=== PATIENT | female | born 1965 | race Caucasian/White ===

== ENCOUNTER → 2019-11-08 | Outpatient (CLI) | payer OTHER ==
--- NOTE | 2019-11-08 13:39 | CT ---
EXAMINATION TYPE: CT chest wo con DATE OF EXAM: 11/08/2019 COMPARISON: None HISTORY: Other emphysema with alpha [address] DLP: 385.[address] of the chest was performed with lung and mediastinal window settings submitted. The la ck of contrast limits evaluation of the vascular, mediastinal and parenchymal structures including th e upper abdomen. LUNGS: The lungs are clear and free of infiltrate. No atelectasis. No pulmonary nodule or mass is de tected. No pleural effusion. No CT evidence of interstitial lung disease. MEDIASTINUM/ANKIT: Thoracic aorta is of normal caliber with limited evaluation given lack of contrast . The heart is not enlarged. No evidence for mediastinal mass. No lymph nodes greater than 1cm. UPPER ABDOMEN: No significant abnormality is seen. OTHER: No significant other abnormality. IMPRESSION: 1. No emphysematous bulla noted. Mild hyperinflation compatible with COPD.
== END | disposition home or self-care (01) ==
LOC: RADCTMAIN 13:03
PROVIDERS: ATTEND Internal Medicine Pulmonary Disease
DX: R91.8 Other nonspecific abnormal finding of lung field (principal); K51.90 Ulcerative colitis, unspecified, without complications; M79.7 Fibromyalgia; I48.91 Unspecified atrial fibrillation; G47.30 Sleep apnea, unspecified
CPT/HCPCS: 71250

== ENCOUNTER → 2020-01-15 | Outpatient (CLI) | payer OTHER ==
--- NOTE | 2020-01-15 07:47 | US ---
EXAMINATION TYPE: US liver DATE OF EXAM: 01/15/2020 COMPARISON: NONE CLINICAL HISTORY: R94.5 Abn liver function. abnormal liver enzymes EXAM MEASUREMENTS: Liver Length: 16.1 cm Gallbladder Wall: 0.2 cm CBD: 0.3 cm Right Kidney: 10.9 x 3.7 x 3.7 cm Pancreas: Obscured by bowel gas Liver: appears wnl Gallbladder: no evidence of stones Evidence for sonographic Santamaria's sign: no CBD: appears wnl Right Kidney: no evidence of hydronephrosis Visualized pancreas is within normal limits. Visualized liver shows no worrisome mass or ductal dilat ation. No surrounding ascites. No hydronephrosis right kidney. Gallbladder within normal limits. IMPRESSION: No worrisome focal intrahepatic mass or intrahepatic ductal dilatation.
[2020-01-15 08:44] LABS: ALT 14 U/L (4-34); AST 22 U/L (14-36); African American GFR (CKD) >90 (>60 ml/min/1.73 sqM); Alkaline Phosphatase 54 U/L (38-126); Anion Gap 4 mmol/L; Blood Urea Nitrogen 12 mg/dL (7-17); Calcium 9.2 mg/dL (8.4-10.2); Carbon Dioxide 30 mmol/L (22-30); Chloride 106 mmol/L (98-107); Glucose 106 mg/dL (74-99); Non-African American GFR(CKD) 83 (>60 ml/min/1.73 sqM); Potassium 4.8 mmol/L (3.5-5.1); Sodium 140 mmol/L (137-145); Total Bilirubin 0.5 mg/dL (0.2-1.3)
[2020-01-15 14:42] LABS: % Iron Saturation 31.01 (12.00-45.00); Iron 89 ug/dL (50-170); Total Iron Binding Capacity 287 ug/dL (228-460)
[2020-01-15 14:50] LABS: Ferritin 21.9 ng/mL (10.0-291.0)
[2020-01-15 15:22] LABS: Ceruloplasmin 24.4 mg/dL (20.0-60.0)
[2020-01-15 15:47] LABS: Hepatitis B Surface Antigen Non-Reactive (Non-Reactive); Hepatitis C IgG Antibody Non-Reactive (Non-Reactive)
== END | disposition home or self-care (01) ==
LOC: RADUSWWP 07:01
PROVIDERS: ATTEND Internal Medicine Gastroenterology
DX: R94.5 Abnormal results of liver function studies (principal)
CPT/HCPCS: 76705; 80053; 82390; 82728; 83516; 83540; 83550; 86038; 86803; 87340

== ENCOUNTER 2020-02-19 06:11 | Day surgery (SDC) | payer OTHER ==
[2020-02-16 09:22] VITALS: BMI 32.5
[~2020-02-19 06:11] MED LIST: ACETAMINOPHEN TAB 500 MG TAB PO PRN; HEPARIN SODIUM,PORCINE 5,000 UNIT/ML 1 ML VIAL SQ PRN; HYDROmorphone 0.5 MG/0.5 ML SYRINGE IVP PRN; LACTATED RINGERS 1,000 ML IV SCH; LIDOCAINE 1% (10MG/ML) FOR IV START INTRADERMA PRN; MIDAZOLAM 2 MG/2 ML VIAL IV PRN; ONDANSETRON 4 MG/2 ML VIAL IVP ONE; Pre Op ABX Message 1 EACH MISC MISCELLANE ONE
[2020-02-19] MEDS ORDERED: LACTATED RINGERS 1,000 ML IV ONE ×2 (06:44→08:42)
[2020-02-19] MEDS ORDERED: LIDOCAINE 1% INJ 10MG/ML (20 ML MDV) ONE (07:49)
[2020-02-19] MEDS ORDERED: PROPOFOL 10 MG/ML 20 ML VIAL IV ONE (07:49)
[2020-02-19] MEDS ORDERED: HYDROmorphone (PF) 1 MG/ML ONE (07:49)
[2020-02-19] MEDS ORDERED: MIDAZOLAM 2 MG/2 ML VIAL ONE (07:49)
[2020-02-19] MEDS ORDERED: ePHEDrine SULFATE/0.9% NACL/PF 50 MG/5 ML SYRINGE IV ONE (07:49)
[2020-02-19] MEDS ORDERED: fentaNYL (PF) 50 MCG/ML 2 ML AMP ONE (07:49)
[2020-02-19] MEDS ORDERED: SODIUM CHLORIDE 0.9% 50 ML with ceFAZolin 2,000 MG IV ONE ×2 (07:55)
--- NOTE | 2020-02-19 07:57 | P.GSHP ---
History of Present Illness H&P Date: 02/19/20 Chief Complaint: Alpha I antitrypsin 54-year-old female with recent diagnosis of severe Alpha I antitrypsin deficiency. Patient with underlying pulmonary issues as a result of that. Will be receiving weekly infusions for that reason. Duration is likely indefinite at this time. Patient apparently has poor IV access and they're having difficulty with the infusions recently. Here today for Port-A-Cath placement. She has not had one previously. Past Medical History Past Medical History: Hypertension, Renal Disease Additional Past Medical History / Comment(s): had COVID beginning of Jan 2020 w/ 6 day hospitalization-last neg test on 02-06-20."extra heart beats", emphysema associated with alpha1 Antitrypsin Def,pheno type EZ,SOB,uses O2 @ 2 L NC @HS,elevated AST & ALT,restless leg syndrome History of Any Multi-Drug Resistant Organisms: MRSA Date of last positivie culture/infection: 2009 MDRO Source:: buttocks Past Surgical History: Appendectomy, Heart Catheterization, Tonsillectomy Additional Past Surgical History / Comment(s): heart cath clear 2018,laparotomy,tumor removed left rib cage, laparoscopy x3,laparotomy for micscarriage Additional Past Anesthesia/Blood Transfusion Reaction / Comment(s): no hx blood transfusion,had leg tremors with heart cath procedure Smoking Status: Never smoker - Past Family History Mother Additional Family Medical History / Comment(s): maternal grandfather colon CA. maternal grandmother breast CA Father Family Medical History: Cancer Additional Family Medical History / Comment(s): leukemia,heart problems,. paternal grandmother lung/liver CA Medications and Allergies Home Medications Medication Instructions Recorded Confirmed Type Acetaminophen Tab [Tylenol] 650 mg PO Q6H PRN 02/16/20 02/16/20 History Albuterol Sulfate [Proair Hfa] 2 puff INHALATION Q6HR PRN 02/16/20 02/16/20 History Fluticasone Propionate 220 Mcg 2 puff INHALATION RT-BID 02/16/20 02/16/20 History [Flovent 220 Mcg Inhaler (Mhu)] [place] Infusion 1 dose IV Q7D 02/16/20 02/16/20 History Ipratropium [place] [Atrovent Hfa] 2 puff INHALATION QID 02/16/20 02/16/20 History Metoprolol Tartrate [Lopressor] 12.5 mg PO BID 02/16/20 02/16/20 History Naproxen Sodium [Aleve] 220 mg PO DAILY PRN 02/16/20 02/16/20 History Thyroid,Pork [[place] Thyroid] 120 mg PO HS 02/16/20 02/16/20 History amLODIPine [Norvasc] 10 mg PO QAM 02/16/20 02/16/20 History diphenhydrAMINE [Benadryl] 50 mg PO DAILY PRN 02/16/20 02/16/20 History Allergies Allergy/AdvReac Type Severity Reaction Status Date / Time beclomethasone [From Qvar] Allergy burning in Verified 02/16/20 08:56 throat and chest,voice hoarseness hydrochlorothiazide Allergy severe low Verified 02/16/20 08:56 potassium causing rapid heart rate latex Allergy hives Verified 02/16/20 08:56 nitroglycerin AdvReac severe Verified 02/16/20 08:56 headache,nausea/vomiting Surgical - Exam Vital Signs Temp Pulse Resp BP Pulse Ox 97.8 F 69 18 140/63 96 02/19/20 06:43 02/19/20 06:43 02/19/20 06:43 02/19/20 06:43 02/19/20 06:43 Physical exam: General: Well-developed, well-nourished HEENT: Normocephalic, sclerae nonicteric Abdomen: Nontender, nondistended Extremities: No edema Neuro: Alert and oriented Assessment and Plan (1) [id number] deficiency Narrative/Plan: Will proceed with Port-A-Cath placement at this time. Risks of bleeding, infection, DVT, pneumothorax, catheter malfunction, anesthesia related complications were discussed. The patient understands and wishes to proceed. Current Visit: Yes Status: Acute Code(s): E88.01 - [id number] DEFICIENCY SNOMED Code(s): 30395322
[2020-02-19] MEDS ORDERED: LIDOCAINE 1% INJ 10MG/ML (20 ML MDV) SQ ONE ×2 (08:13→08:31)
[2020-02-19] MEDS ORDERED: HEPARIN SODIUM,PORCINE 100 UNIT/ML 5 ML VIAL IV ONE (08:14)
[2020-02-19] MEDS ORDERED: HYDROcodone/APAP 5-325MG 1 EACH TAB PO PRN (08:45)
[2020-02-19] MEDS ORDERED: NALOXONE 0.4 MG/ML 1 ML VIAL IV PRN (08:45)
--- NOTE | 2020-02-19 08:47 | P.OP ---
Date of Procedure: 02/19/20 Procedure(s) Performed: PREOPERATIVE DIAGNOSIS: Alpha-1 antitrypsin deficiency POSTOPERATIVE DIAGNOSIS: Same PROCEDURE: Port-A-Cath placement with fluoroscopic and ultrasound guidance SURGEON: John EBL: Minimal ANESTHESIA: Sedation COMPLICATIONS: None OPERATIVE PROCEDURE: Patient was brought and placed on the operative table in the supine position. The patient was sedated per anesthesia that time. The chest and neck were prepped and draped in usual sterile fashion. The ultrasound probe was used to identify the location of the right internal jugular vein. The skin was localized with lidocaine. The Seldinger needle was advanced into the IJ under ultrasound guidance. The wire was advanced through the needle under fluoroscopic guidance into the superior vena cava. A port pocket was created in the right infraclavicular location. The 8-Mongolian catheter was tunneled from the wire entrance site to the port pocket. The port was then connected to the catheter. The dilator introducer was threaded over the guidewire. The guidewire and dilator were then removed. The catheter was advanced through the introducer and introducer was then removed. The tip was seen to be in the right atrial junction via fluoroscopy. A picture of the radiograph showing the tip at the radial digital junction was taken. Port was flushed with both saline and a Hep-Lock solution. There was good flow both in and out of the port. The port was sutured in underlying tissues using 3-0 silk sutures. The subcutaneous tissues were reapproximated using 3-0 Vicryl sutures and the skin at both locations using 4-0 Monocryl sutures. Skin glue and sterile dressings then applied. DISPOSITION: Stable to recovery room
[2020-02-19 08:52] VITALS: TEMP 97
[2020-02-19] MEDS ORDERED: KETOROLAC 15 MG/ML 1 ML VIAL IVP ONE (08:56)
--- NOTE | 2020-02-19 08:58 | FL ---
EXAMINATION TYPE: FL guided central line placemt DATE OF EXAM: 02/19/2020 CLINICAL HISTORY: Port-A-Cath insertion. TECHNIQUE: Fluoroscopy. COMPARISON: None. FINDINGS: Fluoroscopic guidance was provided during Port-A-Cath insertion procedure performed by Dr. Lopez. A total of 10 seconds of fluoroscopic time was utilized during the procedure and single spot fluoroscopic intraoperative image is acquired. Single image acquired shows right internal jugular ce ntral venous catheter terminating in SVC. IMPRESSION: As Above.
[2020-02-19 09:19] VITALS: RESP 16
--- NOTE | 2020-02-19 09:33 | XR ---
EXAMINATION TYPE: XR chest 1V confirm line [facility] DATE OF EXAM: 02/19/2020 COMPARISON: NONE HISTORY: 54-year-old female confirm line placement for Port-A-Cath TECHNIQUE: Single frontal view of the chest is obtained. FINDINGS: Right anterior chest wall injection port with catheter tip at the cavoatrial junction, satisfactory. Hardware limits of normal in size. Mild interstitial prominence may be chronic and can be reassessed at follow-up to exclude any early interstitial infiltrates. No pneumothorax or pleural effusion. IMPRESSION: Satisfactory right anterior chest wall injection port. Catheter tip at the cavoatrial junction.
[2020-02-19 09:51] VITALS: BP 115/76; PULSE 64
== END 2020-02-19 10:25 | disposition home or self-care (01) ==
LOC: OR 06:11
PROVIDERS: ATTEND Surgery
DX: E88.01 Alpha-1-antitrypsin deficiency (principal); I10 Essential (primary) hypertension; J45.909 Unspecified asthma, uncomplicated; J43.9 Emphysema, unspecified; G25.81 Restless legs syndrome; E07.9 Disorder of thyroid, unspecified; Z91.040 Latex allergy status; Z88.8 Allergy status to other drugs, medicaments and biological substances; Z79.51 Long term (current) use of inhaled steroids; Z79.890 Hormone replacement therapy; Z79.899 Other long term (current) drug therapy; Z86.19 Personal history of other infectious and parasitic diseases; Z99.81 Dependence on supplemental oxygen; Z86.14 Personal history of Methicillin resistant Staphylococcus aureus infection; Z90.49 Acquired absence of other specified parts of digestive tract; Z98.890 Other specified postprocedural states; Z80.0 Family history of malignant neoplasm of digestive organs; Z80.3 Family history of malignant neoplasm of breast; Z80.6 Family history of leukemia; Z80.1 Family history of malignant neoplasm of trachea, bronchus and lung
CPT/HCPCS: 81025; 77001; 36561; C1788; J2250; J1644; J1642; J2405; J0690; J2001; J3010; J1170; J1885; J2704

== ENCOUNTER 2020-02-28 10:41 | Day surgery (SDC) | payer OTHER ==
[2020-02-28 11:17] VITALS: TEMP 97.8
[2020-02-28] MEDS ORDERED: LACTATED RINGERS 1,000 ML IV ONE (11:24)
[2020-02-28] MEDS ORDERED: LIDOCAINE 1% (10MG/ML) FOR IV START INTRADERMA ONE (11:25)
[2020-02-28] MEDS ORDERED: PROPOFOL 10 MG/ML 20 ML VIAL IV ONE (12:00)
--- NOTE | 2020-02-28 12:13 | P.PCN ---
Date of Procedure: 02/28/20 Procedure(s) Performed: BRIEF HISTORY: Patient is a 54-year-old pleasant white female scheduled for an elective colonoscopy as a part of surveillance of long-standing ulcerative colitis diagnosed in 2013. Presently clinical remission. She is not on any maintenance medications. PROCEDURE PERFORMED: Colonoscopy with random biopsies PREOPERATIVE DIAGNOSIS: Long-standing history of ulcerative colitis. IV sedation per Anesthesia. PROCEDURE: After informed consent was obtained, the patient, was brought into the endoscopy unit. IV sedation was administered by Anesthesia under continuous monitoring. Digital rectal examination was normal. Initially the Olympus CF-160 flexible video colonoscope was then inserted in the rectum, gradually advanced into the cecum without any difficulty. Careful examination was performed as the scope was gradually being withdrawn. Ileocecal valve and the appendiceal orifice were visualized and appeared normal. Prep was excellent. Mucosa of the cecum, ascending colon, transverse colon, descending colon, sigmoid colon, and rectum appeared normal. Status post random biopsies at every 10 cm intervals from rectum to cecum. Retroflexion was performed in the rectum and no lesions were seen. The patient tolerated the procedure well. IMPRESSION: Normal-appearing colon from rectum to cecum no evidence of colitis or colorectal neoplasia . RECOMMENDATIONS: Findings of this examination were discussed with the patient well as her family.. She was advised to follow with the biopsy results. If this time was of dysphagia she can have a repeat colonoscopy in 2-3 years.
[2020-02-28 12:49] VITALS: BP 117/66; PULSE 62; RESP 18
== END 2020-02-28 13:00 | disposition home or self-care (01) ==
LOC: ORWHC2ENDO 10:41
PROVIDERS: ATTEND Internal Medicine Gastroenterology
DX: Z12.11 Encounter for screening for malignant neoplasm of colon (principal); K52.9 Noninfective gastroenteritis and colitis, unspecified; K51.90 Ulcerative colitis, unspecified, without complications; I12.9 Hypertensive chronic kidney disease with stage 1 through stage 4 chronic kidney disease, or unspecified chronic kidney disease; I25.10 Atherosclerotic heart disease of native coronary artery without angina pectoris; N18.2 Chronic kidney disease, stage 2 (mild); E07.9 Disorder of thyroid, unspecified; G25.81 Restless legs syndrome; Z88.8 Allergy status to other drugs, medicaments and biological substances; Z91.040 Latex allergy status; Z79.890 Hormone replacement therapy; Z79.899 Other long term (current) drug therapy
CPT/HCPCS: 81025; 88305; 45380; J2704